=== PATIENT | male | born 1995 | race Caucasian/White ===

== ENCOUNTER 2022-07-17 09:24 | Emergency (ER) | payer OTHER ==
[2022-07-17] MEDS ORDERED: Ketorolac Tromethamine 30 MG/ML VIAL ONE (11:19)
== END 2022-07-17 11:35 | disposition home or self-care (01) ==
LOC: ERS 09:24
DX: S22.32XA Fracture of one rib, left side, initial encounter for closed fracture (principal); V80.010A Animal-rider injured by fall from or being thrown from horse in noncollision accident, initial encounter; Y93.52 Activity, horseback riding
CPT/HCPCS: 94799; 96372; J1885